=== PATIENT | female | born 1940 | race Caucasian/White ===

== ENCOUNTER 2016-04-30 13:07 | Emergency (ER) | payer OTHER ==
[~2016-04-30] VITALS: Ht 152.4 cm; Wt 64.3 kg
[~2016-04-30 13:07] MED LIST: ADVAIR HFA120 INHAL1 IH; ALBUTEROL17 GM IH; AMARYL2 MG PO; AMOXICILLIN500 MG PO; ANUSOL HC,ANUCO25 MG PR; AUGMENTIN875 MG PO; BLOOD SUGAR MED; BYSTOLIC5 MG PO; CIPRO500 MG PO; CIPROFLOXACIN H10 ML BOTH EYES; CLEOCIN150 MG PO; DUONEB 2.5-0.5 M3 ML AEROSOL; DUONEB 2.5-0.5 M3 ML IH; FLAGYL500 MG PO; JANUVIA100 MG PO; JENTADUETO 2.51 EACH PO; LEVOFLOXACIN500 MG PO; MILK OF MAGNESI10 ML PO; MONTELUKAST SOD10 MG PO; MOTRIN800 MG PO; PREDNISONE10 MG PO; PREDNISONE20 MG PO; PROAIR HFA8.5 GM IH; ZITHROMAX Z-PA250 MG PO; ZOFRAN ODT4 MG PO
[2016-04-30 13:40] LABS: POINT-OF-CARE METER ID UU13113778
[2016-04-30 13:43] LABS: ADD MIUA? NO; BILIRUBIN NEGATIVE; BLOOD NEGATIVE; COLOR LT YELLOW ((YELLOW)); GLUCOSE (STRIP) 500; KETONES NEGATIVE; LEUKOCYTES NEGATIVE; NITRITE NEGATIVE; PROTEIN (STRIP) NEGATIVE; SPECIFIC GRAVITY 1.017 (1.000-1.030); UCUL ADDED? NO
[2016-04-30 14:44] LABS: EOSINOPHIL (%) 0.9 % (0-5); HEMATOCRIT 39.1 % (36.0-46.0); IMMATURE GRANULOCYTE (%) 0.2 % (0.0-0.7); IMMATURE GRANULOCYTE COUNT 0.1 K/uL; LYMPHOCYTE COUNT 1.1 K/uL (1.0-2.8); MCH 29.2 PG (29.0-34.0); MCHC 35.3 G/DL (30.0-36.0); MCV 82.8 FL (83-99); MEAN PLAT.VOLUME 9.8 uM^3 (9.5-12.4); MONOCYTE COUNT 0.4 K/uL (0-0.8); NEUTROPHIL (%) 62.4 % (45-76); NEUTROPHIL COUNT 2.7 K/uL (1.8-6.4); PLATELET COUNT 182 K/uL (156-360); RBC DIS.WIDTH-SD 41.4 % (39-53); RED BLOOD COUNT 4.72 M/uL (3.80-5.20); WHITE BLOOD COUNT 4.3 K/uL (4.1-10.2)
[2016-04-30] MEDS ORDERED: CAPECITABINE500 MG PO (15:04)
[2016-04-30 15:18] LABS: CHLORIDE 100 mEq/L (99-109); POTASSIUM 4.5 mEq/L (3.7-5.4); SODIUM 138 mEq/L (136-147)
[2016-04-30 15:20] LABS: GLUCOSE 274 mg/dL (70-99)
[2016-04-30 15:21] LABS: ANION GAP 15 MEQ/L (2-14)
[2016-04-30 15:24] LABS: GFR ESTIMATE (CALCULATED) 58 mL/min/
[2016-04-30 15:25] LABS: UREA NITROGEN (BUN) 14 mg/dL (9-23)
[2016-04-30 15:38] LABS: CARBON DIOXIDE (BICARBONATE) 32.7 MEQ/L (20-31)
[2016-04-30] MEDS ORDERED: MIRALAX17 GM PO (16:28)
[2016-04-30 16:33] VITALS: BP 142/72
== END 2016-04-30 16:43 | disposition home or self-care (01) ==
LOC: EME 13:07
PROVIDERS: Physician Assistant
DX: E11.65 Type 2 diabetes mellitus with hyperglycemia (principal); J44.9 Chronic obstructive pulmonary disease, unspecified; I10 Essential (primary) hypertension; Z87.442 Personal history of urinary calculi; K21.9 Gastro-esophageal reflux disease without esophagitis; Z87.01 Personal history of pneumonia (recurrent)
CPT/HCPCS: 73130; 80048; 81003; 82803; 82948; 85025; 99281; 99284; J7120

== ENCOUNTER 2016-05-05 11:42 | Emergency (ER) | payer OTHER ==
[~2016-05-05] VITALS: Ht 165.1 cm; Wt 62.5 kg
[~2016-05-05 11:42] MED LIST changes: +CAPECITABINE500 MG PO; +MIRALAX17 GM PO
[2016-05-05 13:44] LABS: EOSINOPHIL (%) 0.6 % (0-5); HEMATOCRIT 37.7 % (36.0-46.0); IMMATURE GRANULOCYTE COUNT 0.3 K/uL; LYMPHOCYTE COUNT 0.4 K/uL (1.0-2.8); MCH 28.9 PG (29.0-34.0); MCV 85.1 FL (83-99); MEAN PLAT.VOLUME 9.5 uM^3 (9.5-12.4); MONOCYTE (%) 12.1 % (3-12); MONOCYTE COUNT 0.4 K/uL (0-0.8); NEUTROPHIL (%) 73.9 % (45-76); NEUTROPHIL COUNT 2.3 K/uL (1.8-6.4); PLATELET COUNT 136 K/uL (156-360); RBC DIS.WIDTH-CV 15.4 % (11.8-14.6); RED BLOOD COUNT 4.43 M/uL (3.80-5.20); WHITE BLOOD COUNT 3.1 K/uL (4.1-10.2)
[2016-05-05 13:49] LABS: ADD MIUA? NO; BILIRUBIN NEGATIVE; BLOOD NEGATIVE; COLOR YELLOW ((YELLOW)); GLUCOSE (STRIP) 500; KETONES TRACE; LEUKOCYTES NEGATIVE; NITRITE NEGATIVE; PH, URINE 6.5 (5-8); PROTEIN (STRIP) NEGATIVE; SPECIFIC GRAVITY 1.007 (1.000-1.030)
[2016-05-05 13:50] LABS: CHLORIDE 103 mEq/L (99-109); POTASSIUM 3.8 mEq/L (3.7-5.4); SODIUM 135 mEq/L (136-147)
[2016-05-05 13:53] LABS: GLUCOSE 261 mg/dL (70-99)
[2016-05-05 13:53] LABS: UCUL ADDED? NO
[2016-05-05 13:54] LABS: ANION GAP 8 MEQ/L (2-14)
[2016-05-05 13:55] LABS: TOTAL BILIRUBIN 0.4 mg/dL (0.0-1.0)
[2016-05-05 13:56] LABS: ALKALINE PHOSPHATASE 47 IU/L (3-129); GFR ESTIMATE (CALCULATED) > 59 mL/min/
[2016-05-05 13:57] LABS: UREA NITROGEN (BUN) 12 mg/dL (9-23)
[2016-05-05 14:00] LABS: LIPASE 21 U/L (1.0-51.0)
[2016-05-05] MEDS ORDERED: BENTYL20 MG PO (15:21)
[2016-05-05] MEDS ORDERED: FLAGYL500 MG PO ×2 (15:22→15:25)
[2016-05-05] MEDS ORDERED: CIPRO500 MG PO ×2 (15:22→15:25)
[2016-05-05 15:50] VITALS: BP 114/64
[2016-05-06] MEDS ORDERED: CIPRO500 MG PO (14:54)
[2016-05-06] MEDS ORDERED: METRONIDAZOLE500 MG PO (14:55)
[2016-05-06] MEDS ORDERED: ANTI-DIARRHEA2 MG PO (14:56)
[2016-05-06] MEDS ORDERED: ZOFRAN8 MG PO (14:58)
[2016-05-06] MEDS ORDERED: SYMBICORT60 INHALAT IH (14:59)
[2016-05-06] MEDS ORDERED: JARDIANCE25 MG PO (15:02)
== END 2016-05-05 16:03 | disposition home or self-care (01) ==
LOC: EME → EDBD 11:42 → EME 11:42
PROVIDERS: Emergency Medicine
DX: K57.32 Diverticulitis of large intestine without perforation or abscess without bleeding (principal); C20 Malignant neoplasm of rectum; I10 Essential (primary) hypertension; E11.9 Type 2 diabetes mellitus without complications; J44.9 Chronic obstructive pulmonary disease, unspecified
CPT/HCPCS: 74177; 80053; 81003; 83690; 85025; 99281; 99285; J7030

== ENCOUNTER 2016-05-06 13:20 | Inpatient (IN) | payer OTHER ==
[~2016-05-06] VITALS: Ht 152.4 cm; Wt 62.3 kg
[~2016-05-06 13:20] MED LIST changes: +BENTYL20 MG PO
[2016-05-06 13:41] LABS: ADD MIUA? NO; BILIRUBIN NEGATIVE; BLOOD NEGATIVE; COLOR YELLOW ((YELLOW)); GLUCOSE (STRIP) NEGATIVE; KETONES 15; LEUKOCYTES NEGATIVE; NITRITE NEGATIVE; PROTEIN (STRIP) NEGATIVE; SPECIFIC GRAVITY 1.013 (1.000-1.030); UCUL ADDED? NO; UROBILINOGEN 0.2 MG/DL (0.2-1.0)
[2016-05-06 14:04] LABS: HEMATOCRIT 39.1 % (36.0-46.0); MCH 28.9 PG (29.0-34.0); MCHC 34.8 G/DL (30.0-36.0); MCV 83.2 FL (83-99); MEAN PLAT.VOLUME 9.3 uM^3 (9.5-12.4); PLATELET COUNT 154 K/uL (156-360); RBC DIS.WIDTH-CV 15.8 % (11.8-14.6); RBC DIS.WIDTH-SD 43.9 % (39-53); WHITE BLOOD COUNT 3.1 K/uL (4.1-10.2)
[2016-05-06 14:15] LABS: CHLORIDE 102 mEq/L (99-109); POTASSIUM 3.9 mEq/L (3.7-5.4); SODIUM 135 mEq/L (136-147)
[2016-05-06 14:17] LABS: GLUCOSE 205 mg/dL (70-99)
[2016-05-06 14:18] LABS: ANION GAP 12 MEQ/L (2-14)
[2016-05-06 14:19] LABS: TOTAL BILIRUBIN 0.4 mg/dL (0.0-1.0)
[2016-05-06 14:20] LABS: ALKALINE PHOSPHATASE 53 IU/L (3-129)
[2016-05-06 14:21] LABS: GFR ESTIMATE (CALCULATED) > 59 mL/min/
[2016-05-06 14:22] LABS: UREA NITROGEN (BUN) 11 mg/dL (9-23)
[2016-05-06] MEDS ORDERED: CIPRO500 MG PO (14:54)
[2016-05-06] MEDS ORDERED: METRONIDAZOLE500 MG PO (14:55)
[2016-05-06] MEDS ORDERED: ANTI-DIARRHEA2 MG PO (14:56)
[2016-05-06] MEDS ORDERED: ZOFRAN8 MG PO (14:58)
[2016-05-06] MEDS ORDERED: SYMBICORT60 INHALAT IH (14:59)
[2016-05-06] MEDS ORDERED: JARDIANCE25 MG PO (15:02)
[2016-05-06 23:40] VITALS: BP 125/61
[2016-05-07 03:24] LABS: POINT-OF-CARE METER ID UU13113807
[2016-05-07 04:23] VITALS: BP 121/59
[2016-05-07 07:05] LABS: EOSINOPHIL (%) 0 % (0-5); HEMATOCRIT 33.9 % (36.0-46.0); LYMPHOCYTE COUNT 0.4 K/uL (1.0-2.8); MCH 28.2 PG (29.0-34.0); MCHC 33.6 G/DL (30.0-36.0); MCV 83.9 FL (83-99); MEAN PLAT.VOLUME 9.2 uM^3 (9.5-12.4); MONOCYTE COUNT 0.3 K/uL (0-0.8); NEUTROPHIL (%) 62.6 % (45-76); NEUTROPHIL COUNT 1.3 K/uL (1.8-6.4); PLATELET COUNT 111 K/uL (156-360); RBC DIS.WIDTH-CV 15.5 % (11.8-14.6); RED BLOOD COUNT 4.04 M/uL (3.80-5.20); WHITE BLOOD COUNT 2.1 K/uL (4.1-10.2)
[2016-05-07 08:00] VITALS: BP 106/52
[2016-05-07 09:04] LABS: ANION GAP 9 MEQ/L (2-14); CHLORIDE 104 MEQ/L (99-109); GFR ESTIMATE (CALCULATED) > 59 mL/min/; GLUCOSE 157 mg/dL (70-99); POTASSIUM 3.2 MEQ/L (3.7-5.4); SAMPLE HEMOLYSIS CHECK 0; SAMPLE ICTERIC CHECK 0; SAMPLE LIPEMIA CHECK 0; SODIUM 138 MEQ/L (136-147); UREA NITROGEN (BUN) 8 mg/dL (9-23)
[2016-05-07 09:19] LABS: POINT-OF-CARE METER ID UU13113807
[2016-05-07 10:39] LABS: POINT-OF-CARE METER ID UU13113807
[2016-05-07 12:00] VITALS: BP 113/54
[2016-05-07 14:33] LABS: POINT-OF-CARE METER ID UU13113807
[2016-05-07 16:00] VITALS: BP 126/71
[2016-05-07 18:19] LABS: POINT-OF-CARE METER ID UU14149396
[2016-05-07 20:00] VITALS: BP 118/92
[2016-05-07 22:38] LABS: POINT-OF-CARE METER ID UU14149396
[2016-05-08] VITALS: BP 104/51
[2016-05-08 04:00] VITALS: BP 138/60
[2016-05-08 05:25] LABS: POINT-OF-CARE METER ID UU14149396
[2016-05-08 08:31] LABS: POINT-OF-CARE METER ID UU13113807
[2016-05-08 08:51] VITALS: BP 131/63
[2016-05-08 12:07] LABS: POINT-OF-CARE METER ID UU14149398
[2016-05-08 16:26] LABS: POINT-OF-CARE METER ID UU14149398
[2016-05-08 16:50] VITALS: BP 130/59
[2016-05-08 19:16] LABS: POINT-OF-CARE METER ID UU14149398
[2016-05-08 22:21] LABS: POINT-OF-CARE METER ID UU14149398
[2016-05-09 00:10] VITALS: BP 117/59
[2016-05-09 03:55] VITALS: BP 169/71
[2016-05-09 04:52] LABS: CHLORIDE 111 mEq/L (99-109); POTASSIUM 3.2 mEq/L (3.7-5.4); SODIUM 141 mEq/L (136-147)
[2016-05-09 04:54] LABS: GLUCOSE 152 mg/dL (70-99)
[2016-05-09 04:55] LABS: ANION GAP 7 MEQ/L (2-14)
[2016-05-09 04:58] LABS: GFR ESTIMATE (CALCULATED) > 59 mL/min/
[2016-05-09 04:59] LABS: UREA NITROGEN (BUN) 3 mg/dL (9-23)
[2016-05-09 05:01] LABS: HEMATOCRIT 33.9 % (36.0-46.0); MCH 28.7 PG (29.0-34.0); MCHC 33.9 G/DL (30.0-36.0); MCV 84.5 FL (83-99); MEAN PLAT.VOLUME 9.1 uM^3 (9.5-12.4); PLATELET COUNT 126 K/uL (156-360); RBC DIS.WIDTH-CV 16.1 % (11.8-14.6); RBC DIS.WIDTH-SD 46.5 % (39-53); RED BLOOD COUNT 4.01 M/uL (3.80-5.20)
[2016-05-09 05:05] LABS: WHITE BLOOD COUNT 1.7 K/uL (4.1-10.2)
[2016-05-09 06:04] LABS: EOSINOPHIL (%) 2.3 % (0-5); IMMATURE GRANULOCYTE (%) 0.6 % (0.0-0.7); IMMATURE GRANULOCYTE COUNT 0.1 K/uL; LYMPHOCYTE COUNT 0.4 K/uL (1.0-2.8); MONOCYTE (%) 16.1 % (3-12); MONOCYTE COUNT 0.3 K/uL (0-0.8); NEUTROPHIL (%) 55.7 % (45-76)
[2016-05-09 06:05] LABS: HEMATOLOGY COMMENT 1 SMEAR COMPATIBLE; USER ID DCS
[2016-05-09 08:19] LABS: POINT-OF-CARE METER ID UU14149398
[2016-05-09 08:46] VITALS: BP 129/61
[2016-05-09 12:31] LABS: POINT-OF-CARE METER ID UU14149398
[2016-05-09 12:45] VITALS: BP 138/65
[2016-05-09 16:27] LABS: POINT-OF-CARE METER ID UU14149398
[2016-05-09 16:55] VITALS: BP 124/60
[2016-05-09 20:10] VITALS: BP 142/63
[2016-05-09 21:23] LABS: ADD MIUA? NO; BILIRUBIN NEGATIVE; BLOOD NEGATIVE; COLOR YELLOW ((YELLOW)); GLUCOSE (STRIP) 100; KETONES NEGATIVE; LEUKOCYTES NEGATIVE; NITRITE NEGATIVE; PH, URINE 6.5 (5-8); PROTEIN (STRIP) NEGATIVE; UCUL ADDED? NO
[2016-05-09 21:48] LABS: POINT-OF-CARE METER ID UU14149398
[2016-05-10 00:02] VITALS: BP 130/62
[2016-05-10 03:49] VITALS: BP 134/68
[2016-05-10 06:09] LABS: EOSINOPHIL (%) 1.1 % (0-5); HEMATOCRIT 37.9 % (36.0-46.0); IMMATURE GRANULOCYTE (%) 1.5 % (0.0-0.7); LYMPHOCYTE COUNT 0.5 K/uL (1.0-2.8); MCH 28.9 PG (29.0-34.0); MCHC 33.5 G/DL (30.0-36.0); MCV 86.1 FL (83-99); MEAN PLAT.VOLUME 9.9 uM^3 (9.5-12.4); MONOCYTE (%) 12.1 % (3-12); MONOCYTE COUNT 0.3 K/uL (0-0.8); NEUTROPHIL COUNT 1.7 K/uL (1.8-6.4); PLATELET COUNT 128 K/uL (156-360); RBC DIS.WIDTH-CV 16.5 % (11.8-14.6); RBC DIS.WIDTH-SD 50.1 % (39-53)
[2016-05-10 06:12] LABS: WHITE BLOOD COUNT 2.7 K/uL (4.1-10.2)
[2016-05-10 06:33] LABS: ANION GAP 9 MEQ/L (2-14); CHLORIDE 108 MEQ/L (99-109); GFR ESTIMATE (CALCULATED) > 59 mL/min/; GLUCOSE 171 mg/dL (70-99); POTASSIUM 3.6 MEQ/L (3.7-5.4); SAMPLE HEMOLYSIS CHECK 0; SAMPLE ICTERIC CHECK 0; SAMPLE LIPEMIA CHECK 0; SODIUM 139 MEQ/L (136-147); UREA NITROGEN (BUN) 3 mg/dL (9-23)
[2016-05-10 08:05] VITALS: BP 124/59
[2016-05-10 09:01] LABS: POINT-OF-CARE METER ID UU14149398
[2016-05-10 12:13] LABS: POINT-OF-CARE METER ID UU14149398
[2016-05-10 16:28] VITALS: BP 127/71
[2016-05-10 17:56] LABS: POINT-OF-CARE METER ID UU14149398
[2016-05-10 21:43] LABS: POINT-OF-CARE METER ID UU14149398
[2016-05-10 23:35] VITALS: BP 126/62
[2016-05-11 08:21] VITALS: BP 145/68
[2016-05-11 09:34] LABS: POINT-OF-CARE METER ID UU14149398; POINT-OF-CARE USER ID 606021404
[2016-05-11 12:27] LABS: POINT-OF-CARE METER ID UU13113807; POINT-OF-CARE USER ID 606021404
[2016-05-11 15:33] VITALS: BP 151/68
[2016-05-11 17:29] LABS: POINT-OF-CARE METER ID UU13113807
[2016-05-11 20:05] VITALS: BP 119/65
[2016-05-11 21:11] LABS: POINT-OF-CARE METER ID UU14149398
[2016-05-11 23:58] VITALS: BP 127/66
[2016-05-12 03:37] VITALS: BP 142/63
[2016-05-12 05:55] LABS: HEMATOCRIT 34.2 % (36.0-46.0); MCH 28.7 PG (29.0-34.0); MCHC 33.3 G/DL (30.0-36.0); MCV 86.1 FL (83-99); MEAN PLAT.VOLUME 9.7 uM^3 (9.5-12.4); PLATELET COUNT 128 K/uL (156-360); RBC DIS.WIDTH-CV 16.9 % (11.8-14.6); RBC DIS.WIDTH-SD 51.3 % (39-53); RED BLOOD COUNT 3.97 M/uL (3.80-5.20); WHITE BLOOD COUNT 2.4 K/uL (4.1-10.2)
[2016-05-12 06:09] LABS: EOSINOPHIL (%) 4.2 % (0-5); EOSINOPHIL COUNT 0.1 K/uL (0-0.3); IMMATURE GRANULOCYTE (%) 2.9 % (0.0-0.7); IMMATURE GRANULOCYTE COUNT 0.1 K/uL; LYMPHOCYTE COUNT 0.7 K/uL (1.0-2.8); MONOCYTE (%) 18.4 % (3-12); MONOCYTE COUNT 0.4 K/uL (0-0.8); NEUTROPHIL (%) 44.8 % (45-76); NEUTROPHIL COUNT 1.1 K/uL (1.8-6.4)
[2016-05-12 06:25] LABS: ANION GAP 6 MEQ/L (2-14); CHLORIDE 109 MEQ/L (99-109); GFR ESTIMATE (CALCULATED) > 59 mL/min/; GLUCOSE 199 mg/dL (70-99); POTASSIUM 4.2 MEQ/L (3.7-5.4); SAMPLE HEMOLYSIS CHECK 0; SAMPLE ICTERIC CHECK 0; SAMPLE LIPEMIA CHECK 0; SODIUM 142 MEQ/L (136-147); UREA NITROGEN (BUN) 5 mg/dL (9-23)
[2016-05-12 07:55] VITALS: BP 184/77
[2016-05-12 08:19] LABS: POINT-OF-CARE METER ID UU14149398; POINT-OF-CARE USER ID 606021404
[2016-05-12 11:50] VITALS: BP 128/55
[2016-05-12 12:00] LABS: POINT-OF-CARE METER ID UU14149398; POINT-OF-CARE USER ID 606021404
[2016-05-12 15:31] VITALS: BP 107/54
[2016-05-12 17:36] LABS: POINT-OF-CARE METER ID UU14149398; POINT-OF-CARE USER ID 606021404
[2016-05-12 20:10] VITALS: BP 134/62
[2016-05-12] MEDS ORDERED: CIPROFLOXACIN500 M1 PO (20:16)
[2016-05-12] MEDS ORDERED: DICYCLOMINE HCL10 MG PO (20:16)
[2016-05-12] MEDS ORDERED: K-DUR20 MEQ PO (20:17)
[2016-05-12] MEDS ORDERED: PRAVASTATIN SOD40 MG PO (20:17)
[2016-05-12] MEDS ORDERED: PANTOPRAZOLE SO40 MG PO (20:18)
[2016-05-12] MEDS ORDERED: MUCINEX600 MG PO (20:18)
[2016-05-12 22:08] LABS: POINT-OF-CARE METER ID UU14149398
[2016-05-13] VITALS: BP 107/53
[2016-05-13 07:46] VITALS: BP 151/68
[2016-05-13 07:51] LABS: POINT-OF-CARE METER ID UU14149396
[2016-05-13 12:12] VITALS: BP 117/57
[2016-05-13 12:49] LABS: POINT-OF-CARE METER ID UU13113807
[2016-05-13 14:41] LABS: POINT-OF-CARE METER ID UU13113807
== END 2016-05-13 16:00 | disposition home or self-care (01) | DRG 392 ==
LOC: EME 13:20 → 4SOUTH 16:22 → EDOF 16:22 → 4SOUTH 23:30
PROVIDERS: Family Medicine; Family Medicine Sports Medicine
DX: K57.92 Diverticulitis of intestine, part unspecified, without perforation or abscess without bleeding (principal); C20 Malignant neoplasm of rectum; I27.2 Other secondary pulmonary hypertension; Z92.21 Personal history of antineoplastic chemotherapy; R07.89 Other chest pain; F32.9 Major depressive disorder, single episode, unspecified; E11.9 Type 2 diabetes mellitus without complications; J44.9 Chronic obstructive pulmonary disease, unspecified; I10 Essential (primary) hypertension; E78.5 Hyperlipidemia, unspecified; K21.9 Gastro-esophageal reflux disease without esophagitis; E87.6 Hypokalemia; I50.9 Heart failure, unspecified; F41.9 Anxiety disorder, unspecified; R11.0 Nausea; Z80.0 Family history of malignant neoplasm of digestive organs; Z91.040 Latex allergy status; Z88.6 Allergy status to analgesic agent; Z88.1 Allergy status to other antibiotic agents; Z92.3 Personal history of irradiation
CPT/HCPCS: 71020; 74020; 74177; 77290; 77336; 77412; 77417; 80048; 80053; 81003; 82948; 83690; 85025; 85027; 93005; 93306; 94640; 94640 76; 99202; 99281; 99285; J0744; J1650; J1815; J2405; J3010; J3480; J7030; J8521; S0028; S0030

== ENCOUNTER 2016-07-29 08:08 | Inpatient (IN) | payer OTHER ==
[~2016-07-29] VITALS: Ht 152.4 cm; Wt 75.8 kg
[2016-07-29] VITALS (7 sets, daily range): BP systolic 114–143; BP diastolic 55–94
[~2016-07-29 08:08] MED LIST changes: +ANTI-DIARRHEA2 MG PO; +CIPROFLOXACIN500 M1 PO; +DICYCLOMINE HCL10 MG PO; +GLUCOTROL5 MG PO; +JARDIANCE25 MG PO; +K-DUR20 MEQ PO; +METRONIDAZOLE500 MG PO; +MUCINEX600 MG PO; +PANTOPRAZOLE SO40 MG PO; +PRAVACHOL40 MG PO; +PRAVASTATIN SOD40 MG PO; +PROTONIX40 MG PO; +SYMBICORT60 INHALAT IH; +TOPROL XL25 MG PO; +ZOFRAN8 MG PO
[2016-07-29 09:08] LABS: HEMATOCRIT 40.2 % (36.0-46.0); MCH 29.6 PG (29.0-34.0); MCHC 33.3 G/DL (30.0-36.0); MCV 88.7 FL (83-99); MEAN PLAT.VOLUME 9.8 uM^3 (9.5-12.4); PLATELET COUNT 194 K/uL (156-360); RBC DIS.WIDTH-CV 12.7 % (11.8-14.6); RBC DIS.WIDTH-SD 41.5 % (39-53); RED BLOOD COUNT 4.53 M/uL (3.80-5.20); WHITE BLOOD COUNT 5.9 K/uL (4.1-10.2)
[2016-07-29 09:16] LABS: CHLORIDE 105 mEq/L (99-109); POTASSIUM 4.3 mEq/L (3.7-5.4); SODIUM 139 mEq/L (136-147)
[2016-07-29 09:18] LABS: GLUCOSE 219 mg/dL (70-99)
[2016-07-29 09:19] LABS: ANION GAP 8 MEQ/L (2-14)
[2016-07-29 09:22] LABS: GFR ESTIMATE (CALCULATED) > 59 mL/min/
[2016-07-29 09:23] LABS: UREA NITROGEN (BUN) 11 mg/dL (9-23)
[2016-07-29 16:47] LABS: POINT-OF-CARE METER ID UU13113675
[2016-07-29 17:48] LABS: ANION GAP 9 MEQ/L (2-14); CHLORIDE 104 MEQ/L (99-109); MAGNESIUM 1.3 mg/dl (1.3-2.7); POTASSIUM 3.8 MEQ/L (3.7-5.4); SAMPLE HEMOLYSIS CHECK 0; SAMPLE ICTERIC CHECK 0; SAMPLE LIPEMIA CHECK 0; SODIUM 136 MEQ/L (136-147)
[2016-07-29 17:54] LABS: GFR ESTIMATE (CALCULATED) > 59 mL/min/; UREA NITROGEN (BUN) 9 mg/dL (9-23)
[2016-07-29 17:55] LABS: TROP-I INTERPRETATION NEGATIVE; TROPONIN-I < 0.01 ng/mL (0.0-0.30)
[2016-07-29 17:59] LABS: GLUCOSE 373 mg/dL (70-99)
[2016-07-29 18:03] LABS: HEMATOCRIT 28.2 % (36.0-46.0); MCH 29.9 PG (29.0-34.0); MCHC 33.7 G/DL (30.0-36.0); MCV 88.7 FL (83-99); MEAN PLAT.VOLUME 9.9 uM^3 (9.5-12.4); PLATELET COUNT 183 K/uL (156-360); RBC DIS.WIDTH-CV 12.8 % (11.8-14.6); RBC DIS.WIDTH-SD 41.7 % (39-53)
[2016-07-29 18:08] LABS: RED BLOOD COUNT 3.18 M/uL (3.80-5.20); WHITE BLOOD COUNT 13.2 K/uL (4.1-10.2)
[2016-07-29 21:10] LABS: METH RESISTANT S AUREUS PCR NEGATIVE (NEGATIVE)
[2016-07-29 21:11] LABS: PROBE CHECK PASS; SPECIMEN PROCESSING CONTROL PASS
[2016-07-30] VITALS (23 sets, daily range): BP systolic 86–126; BP diastolic 31–53
[2016-07-30 05:49] LABS: HEMATOCRIT 27.2 % (36.0-46.0); MCH 29.9 PG (29.0-34.0); MCHC 33.5 G/DL (30.0-36.0); MCV 89.5 FL (83-99); MEAN PLAT.VOLUME 10.2 uM^3 (9.5-12.4); PLATELET COUNT 205 K/uL (156-360); RBC DIS.WIDTH-SD 42.2 % (39-53); RED BLOOD COUNT 3.04 M/uL (3.80-5.20); WHITE BLOOD COUNT 16.7 K/uL (4.1-10.2)
[2016-07-30 06:11] LABS: ANION GAP 10 MEQ/L (2-14); CHLORIDE 102 MEQ/L (99-109); GFR ESTIMATE (CALCULATED) > 59 mL/min/; GLUCOSE 328 mg/dL (70-99); MAGNESIUM 1.3 mg/dl (1.3-2.7); POTASSIUM 4.5 MEQ/L (3.7-5.4); SAMPLE HEMOLYSIS CHECK 0; SAMPLE ICTERIC CHECK 0; SAMPLE LIPEMIA CHECK 0; SODIUM 137 MEQ/L (136-147); UREA NITROGEN (BUN) 10 mg/dL (9-23)
[2016-07-30 06:28] LABS: TROP-I INTERPRETATION NEGATIVE; TROPONIN-I < 0.01 ng/mL (0.0-0.30)
[2016-07-30 08:53] LABS: ANION GAP 10 MEQ/L (2-14); CHLORIDE 109 MEQ/L (99-109); GFR ESTIMATE (CALCULATED) > 59 mL/min/; GLUCOSE 305 mg/dL (70-99); POTASSIUM 4.5 MEQ/L (3.7-5.4); SAMPLE HEMOLYSIS CHECK 0; SAMPLE ICTERIC CHECK 0; SAMPLE LIPEMIA CHECK 0; SODIUM 144 MEQ/L (136-147); UREA NITROGEN (BUN) 10 mg/dL (9-23)
[2016-07-30 09:34] LABS: Estimated Average Glucose 189 mg/dL (70-123)
[2016-07-30 09:45] LABS: POINT-OF-CARE METER ID UU13113731
[2016-07-30 09:48] LABS: HEMOGLOBIN A1c (GLYCOHEMOGLOB) 8.2 % HGB (Below 5.7)
[2016-07-30 10:37] LABS: POINT-OF-CARE METER ID UU13113731
[2016-07-30 11:41] LABS: POINT-OF-CARE METER ID UU13113731
[2016-07-30 12:40] LABS: POINT-OF-CARE METER ID UU13113731
[2016-07-30 13:39] LABS: ANION GAP 8 MEQ/L (2-14); CHLORIDE 104 MEQ/L (99-109); GFR ESTIMATE (CALCULATED) > 59 mL/min/; GLUCOSE 163 mg/dL (70-99); SAMPLE HEMOLYSIS CHECK 0; SAMPLE ICTERIC CHECK 0; SAMPLE LIPEMIA CHECK 0; SODIUM 137 MEQ/L (136-147); UREA NITROGEN (BUN) 10 mg/dL (9-23)
[2016-07-30 13:41] LABS: POINT-OF-CARE METER ID UU13113731
[2016-07-30 14:50] LABS: POINT-OF-CARE METER ID UU13113731
[2016-07-30 15:40] LABS: POINT-OF-CARE METER ID UU13113731
[2016-07-30 16:12] LABS: HEMATOCRIT 30.4 % (36.0-46.0); MCH 29.7 PG (29.0-34.0); MCHC 34.2 G/DL (30.0-36.0); MCV 86.9 FL (83-99); PLATELET COUNT 161 K/uL (156-360); RBC DIS.WIDTH-CV 14.1 % (11.8-14.6); RBC DIS.WIDTH-SD 44.6 % (39-53); WHITE BLOOD COUNT 14.3 K/uL (4.1-10.2)
[2016-07-30 16:25] LABS: ANION GAP 5 MEQ/L (2-14); CHLORIDE 105 MEQ/L (99-109); POTASSIUM 4.2 MEQ/L (3.7-5.4); SAMPLE HEMOLYSIS CHECK 0; SAMPLE ICTERIC CHECK 0; SAMPLE LIPEMIA CHECK 0; SODIUM 137 MEQ/L (136-147)
[2016-07-30 16:31] LABS: GFR ESTIMATE (CALCULATED) > 59 mL/min/; GLUCOSE 123 mg/dL (70-99); UREA NITROGEN (BUN) 10 mg/dL (9-23)
[2016-07-30 16:40] LABS: POINT-OF-CARE METER ID UU13113731
[2016-07-30 18:16] LABS: POINT-OF-CARE METER ID UU13113803
[2016-07-30 20:53] LABS: ANION GAP 6 MEQ/L (2-14); CHLORIDE 103 MEQ/L (99-109); POTASSIUM 4.5 MEQ/L (3.7-5.4); SAMPLE HEMOLYSIS CHECK 0; SAMPLE ICTERIC CHECK 0; SAMPLE LIPEMIA CHECK 0; SODIUM 136 MEQ/L (136-147)
[2016-07-30 20:58] LABS: GFR ESTIMATE (CALCULATED) > 59 mL/min/; UREA NITROGEN (BUN) 9 mg/dL (9-23)
[2016-07-30 21:00] LABS: GLUCOSE 197 mg/dL (70-99)
[2016-07-30 21:35] LABS: POINT-OF-CARE METER ID UU13113731
[2016-07-31] VITALS (21 sets, daily range): BP systolic 100–132; BP diastolic 39–52
[2016-07-31 01:31] LABS: CHLORIDE 105 mEq/L (99-109); POTASSIUM 4.3 mEq/L (3.7-5.4); SODIUM 137 mEq/L (136-147)
[2016-07-31 01:33] LABS: GLUCOSE 182 mg/dL (70-99)
[2016-07-31 01:34] LABS: ANION GAP 6 MEQ/L (2-14)
[2016-07-31 01:37] LABS: GFR ESTIMATE (CALCULATED) > 59 mL/min/
[2016-07-31 01:38] LABS: UREA NITROGEN (BUN) 8 mg/dL (9-23)
[2016-07-31 02:23] LABS: POINT-OF-CARE METER ID UU14174217
[2016-07-31 05:48] LABS: HEMATOCRIT 28.1 % (36.0-46.0); MCH 29.5 PG (29.0-34.0); MCHC 33.5 G/DL (30.0-36.0); MCV 88.1 FL (83-99); MEAN PLAT.VOLUME 10.2 uM^3 (9.5-12.4); PLATELET COUNT 150 K/uL (156-360); RBC DIS.WIDTH-CV 14.9 % (11.8-14.6); RBC DIS.WIDTH-SD 48.4 % (39-53); RED BLOOD COUNT 3.19 M/uL (3.80-5.20)
[2016-07-31 06:04] LABS: ANION GAP 6 MEQ/L (2-14); CHLORIDE 104 MEQ/L (99-109); POTASSIUM 4.2 MEQ/L (3.7-5.4); SAMPLE HEMOLYSIS CHECK 0; SAMPLE ICTERIC CHECK 0; SAMPLE LIPEMIA CHECK 0; SODIUM 137 MEQ/L (136-147)
[2016-07-31 06:10] LABS: GFR ESTIMATE (CALCULATED) > 59 mL/min/; GLUCOSE 224 mg/dL (70-99); UREA NITROGEN (BUN) 8 mg/dL (9-23)
[2016-07-31 10:58] LABS: POINT-OF-CARE METER ID UU14174217
[2016-07-31 13:58] LABS: POINT-OF-CARE METER ID UU14174217
[2016-07-31 17:58] LABS: POINT-OF-CARE METER ID UU14174217
[2016-08-01] VITALS (22 sets, daily range): BP systolic 85–124; BP diastolic 40–51
[2016-08-01 00:30] LABS: POINT-OF-CARE METER ID UU14162636
[2016-08-01 05:44] LABS: POINT-OF-CARE METER ID UU14174217
[2016-08-01 06:13] LABS: ANION GAP 5 MEQ/L (2-14); CHLORIDE 102 MEQ/L (99-109); GFR ESTIMATE (CALCULATED) > 59 mL/min/; GLUCOSE 208 mg/dL (70-99); POTASSIUM 3.7 MEQ/L (3.7-5.4); SAMPLE HEMOLYSIS CHECK 0; SAMPLE ICTERIC CHECK 0; SAMPLE LIPEMIA CHECK 0; SODIUM 135 MEQ/L (136-147); UREA NITROGEN (BUN) 4 mg/dL (9-23)
[2016-08-01 06:27] LABS: EOSINOPHIL (%) 1.5 % (0-5); EOSINOPHIL COUNT 0.1 K/uL (0-0.3); HEMATOCRIT 24.3 % (36.0-46.0); IMMATURE GRANULOCYTE (%) 0.6 % (0.0-0.7); IMMATURE GRANULOCYTE COUNT 0.1 K/uL; INSTRUMENT ABS NEUTROPHIL CT 5.8 K/uL; LYMPHOCYTE COUNT 1.4 K/uL (1.0-2.8); MCH 29.4 PG (29.0-34.0); MCHC 32.9 G/DL (30.0-36.0); MCV 89.3 FL (83-99); MEAN PLAT.VOLUME 10.5 uM^3 (9.5-12.4); MONOCYTE (%) 8.4 % (3-12); MONOCYTE COUNT 0.7 K/uL (0-0.8); NEUTROPHIL (%) 72.1 % (45-76); NEUTROPHIL COUNT 5.8 K/uL (1.8-6.4); PLATELET COUNT 136 K/uL (156-360); RBC DIS.WIDTH-CV 14.3 % (11.8-14.6); RBC DIS.WIDTH-SD 46.3 % (39-53); RED BLOOD COUNT 2.72 M/uL (3.80-5.20)
[2016-08-01 09:41] LABS: POINT-OF-CARE METER ID UU14174217
[2016-08-01 14:47] LABS: POINT-OF-CARE METER ID UU13113731
[2016-08-01 18:00] LABS: POINT-OF-CARE METER ID UU13113731
[2016-08-01 21:42] LABS: POINT-OF-CARE METER ID UU13113731; POINT-OF-CARE USER ID PHATLC
[2016-08-02] VITALS (16 sets, daily range): BP systolic 92–148; BP diastolic 39–67
[2016-08-02 02:57] LABS: POINT-OF-CARE METER ID UU13113731; POINT-OF-CARE USER ID PHATLC
[2016-08-02 05:50] LABS: ANION GAP 5 MEQ/L (2-14); CHLORIDE 103 MEQ/L (99-109); GFR ESTIMATE (CALCULATED) > 59 mL/min/; GLUCOSE 183 mg/dL (70-99); POTASSIUM 3.7 MEQ/L (3.7-5.4); SAMPLE HEMOLYSIS CHECK 0; SAMPLE ICTERIC CHECK 0; SAMPLE LIPEMIA CHECK 0; SODIUM 138 MEQ/L (136-147); UREA NITROGEN (BUN) 3 mg/dL (9-23)
[2016-08-02 05:59] LABS: POINT-OF-CARE METER ID UU14174217; POINT-OF-CARE USER ID PHATLC
[2016-08-02 06:32] LABS: HEMATOCRIT 24.5 % (36.0-46.0); MCH 29.3 PG (29.0-34.0); MCHC 32.7 G/DL (30.0-36.0); MCV 89.7 FL (83-99); MEAN PLAT.VOLUME 10.4 uM^3 (9.5-12.4); PLATELET COUNT 138 K/uL (156-360); RBC DIS.WIDTH-CV 13.9 % (11.8-14.6); RBC DIS.WIDTH-SD 45.5 % (39-53); RED BLOOD COUNT 2.73 M/uL (3.80-5.20)
[2016-08-02 07:00] LABS: WHITE BLOOD COUNT 5.4 K/uL (4.1-10.2)
[2016-08-02 10:24] LABS: POINT-OF-CARE METER ID UU14162636
[2016-08-02 15:15] LABS: POINT-OF-CARE METER ID UU14162636
[2016-08-02 17:48] LABS: POINT-OF-CARE METER ID UU14162636
[2016-08-02 22:45] LABS: POINT-OF-CARE METER ID UU13113731
[2016-08-03] VITALS (7 sets, daily range): BP systolic 125–158; BP diastolic 53–64
[2016-08-03 02:43] LABS: POINT-OF-CARE METER ID UU13113803
[2016-08-03 05:29] LABS: POINT-OF-CARE METER ID UU13113803
[2016-08-03 05:43] LABS: HEMATOCRIT 26.1 % (36.0-46.0); MCH 28.8 PG (29.0-34.0); MCHC 32.2 G/DL (30.0-36.0); MCV 89.4 FL (83-99); MEAN PLAT.VOLUME 10.1 uM^3 (9.5-12.4); PLATELET COUNT 170 K/uL (156-360); RBC DIS.WIDTH-CV 13.8 % (11.8-14.6); RBC DIS.WIDTH-SD 44.3 % (39-53); RED BLOOD COUNT 2.92 M/uL (3.80-5.20); WHITE BLOOD COUNT 5.1 K/uL (4.1-10.2)
[2016-08-03 07:06] LABS: Estimated Average Glucose 160 mg/dL (70-123); HEMOGLOBIN A1c (GLYCOHEMOGLOB) 7.2 % HGB (Below 5.7)
[2016-08-03 07:09] LABS: ANION GAP 6 MEQ/L (2-14); CHLORIDE 104 MEQ/L (99-109); GFR ESTIMATE (CALCULATED) > 59 mL/min/; GLUCOSE 171 mg/dL (70-99); POTASSIUM 4.1 MEQ/L (3.7-5.4); SAMPLE HEMOLYSIS CHECK 0; SAMPLE ICTERIC CHECK 0; SAMPLE LIPEMIA CHECK 0; SODIUM 141 MEQ/L (136-147); UREA NITROGEN (BUN) 3 mg/dL (9-23)
[2016-08-03 10:08] LABS: POINT-OF-CARE METER ID UU13113803
[2016-08-04 00:54] LABS: POINT-OF-CARE METER ID UU14162508
[2016-08-04 04:00] VITALS: BP 119/56
[2016-08-04 06:25] LABS: POINT-OF-CARE METER ID UU14162508
[2016-08-04 07:15] LABS: EOSINOPHIL (%) 1.4 % (0-5); EOSINOPHIL COUNT 0.1 K/uL (0-0.3); HEMATOCRIT 25.8 % (36.0-46.0); IMMATURE GRANULOCYTE (%) 1.4 % (0.0-0.7); IMMATURE GRANULOCYTE COUNT 0.1 K/uL; INSTRUMENT ABS NEUTROPHIL CT 7.5 K/uL; LYMPHOCYTE COUNT 0.7 K/uL (1.0-2.8); MCH 29.2 PG (29.0-34.0); MCHC 33.3 G/DL (30.0-36.0); MCV 87.5 FL (83-99); MEAN PLAT.VOLUME 9.5 uM^3 (9.5-12.4); MONOCYTE (%) 8.1 % (3-12); MONOCYTE COUNT 0.7 K/uL (0-0.8); NEUTROPHIL (%) 81.4 % (45-76); NEUTROPHIL COUNT 7.5 K/uL (1.8-6.4); NRBC (%) 0.2 /100 WBC (0-0); PLATELET COUNT 204 K/uL (156-360); RBC DIS.WIDTH-CV 13.8 % (11.8-14.6); RBC DIS.WIDTH-SD 43.4 % (39-53); RED BLOOD COUNT 2.95 M/uL (3.80-5.20)
[2016-08-04 07:17] LABS: WHITE BLOOD COUNT 9.2 K/uL (4.1-10.2)
[2016-08-04 07:34] LABS: MAGNESIUM 1.3 mg/dl (1.3-2.7)
[2016-08-04 07:39] LABS: ANION GAP 5 MEQ/L (2-14); CHLORIDE 97 MEQ/L (99-109); GFR ESTIMATE (CALCULATED) > 59 mL/min/; GLUCOSE 150 mg/dL (70-99); SAMPLE HEMOLYSIS CHECK 0; SAMPLE ICTERIC CHECK 0; SAMPLE LIPEMIA CHECK 0; SODIUM 134 MEQ/L (136-147); UREA NITROGEN (BUN) 4 mg/dL (9-23)
[2016-08-04 07:40] LABS: POTASSIUM 3.2 MEQ/L (3.7-5.4)
[2016-08-04 08:00] VITALS: BP 108/54
[2016-08-04 10:42] LABS: POINT-OF-CARE METER ID UU14162508
[2016-08-04 12:00] VITALS: BP 132/59
[2016-08-04 14:32] LABS: POINT-OF-CARE METER ID UU14162508
[2016-08-04 16:00] VITALS: BP 156/67
[2016-08-04 20:17] VITALS: BP 142/70
[2016-08-04 21:25] LABS: POINT-OF-CARE METER ID UU14162508
[2016-08-04 23:30] VITALS: BP 140/65
[2016-08-05 04:04] VITALS: BP 136/70
[2016-08-05 06:17] LABS: POINT-OF-CARE METER ID UU14162508
[2016-08-05 07:12] LABS: HEMATOCRIT 28.1 % (36.0-46.0); MCH 29.4 PG (29.0-34.0); MCHC 33.1 G/DL (30.0-36.0); MCV 88.9 FL (83-99); MEAN PLAT.VOLUME 9.6 uM^3 (9.5-12.4); PLATELET COUNT 261 K/uL (156-360); RBC DIS.WIDTH-CV 13.9 % (11.8-14.6); RBC DIS.WIDTH-SD 44.7 % (39-53); RED BLOOD COUNT 3.16 M/uL (3.80-5.20)
[2016-08-05 07:30] VITALS: BP 143/72
[2016-08-05 07:45] LABS: ANION GAP 10 MEQ/L (2-14); CHLORIDE 100 MEQ/L (99-109); GFR ESTIMATE (CALCULATED) > 59 mL/min/; GLUCOSE 177 mg/dL (70-99); POTASSIUM 3.7 MEQ/L (3.7-5.4); SAMPLE HEMOLYSIS CHECK 0; SAMPLE ICTERIC CHECK 0; SAMPLE LIPEMIA CHECK 0; SODIUM 139 MEQ/L (136-147); UREA NITROGEN (BUN) 4 mg/dL (9-23)
[2016-08-05 07:46] LABS: MAGNESIUM 1.9 mg/dl (1.3-2.7)
[2016-08-05 11:05] VITALS: BP 129/64
[2016-08-05 15:50] VITALS: BP 111/59
[2016-08-05 19:59] VITALS: BP 109/59
[2016-08-06] VITALS (8 sets, daily range): BP systolic 102–116; BP diastolic 50–65
[2016-08-06 07:17] LABS: ANION GAP 7 MEQ/L (2-14); CHLORIDE 99 MEQ/L (99-109); GFR ESTIMATE (CALCULATED) > 59 mL/min/; GLUCOSE 165 mg/dL (70-99); MAGNESIUM 1.8 mg/dl (1.3-2.7); POTASSIUM 3.8 MEQ/L (3.7-5.4); SAMPLE HEMOLYSIS CHECK 0; SAMPLE ICTERIC CHECK 0; SAMPLE LIPEMIA CHECK 0; SODIUM 136 MEQ/L (136-147); UREA NITROGEN (BUN) 4 mg/dL (9-23)
[2016-08-06 07:33] LABS: HEMATOCRIT 27.6 % (36.0-46.0); MCH 29.5 PG (29.0-34.0); MCHC 33.3 G/DL (30.0-36.0); MCV 88.5 FL (83-99); RBC DIS.WIDTH-CV 13.8 % (11.8-14.6); RBC DIS.WIDTH-SD 44.3 % (39-53); RED BLOOD COUNT 3.12 M/uL (3.80-5.20); WHITE BLOOD COUNT 7.6 K/uL (4.1-10.2)
[2016-08-06 08:31] LABS: MEAN PLAT.VOLUME 10.1 uM^3 (9.5-12.4)
[2016-08-06 08:36] LABS: PLATELET COUNT 174 K/uL (156-360)
[2016-08-06 12:30] LABS: POINT-OF-CARE METER ID UU14162508
[2016-08-06 17:19] LABS: POINT-OF-CARE METER ID UU14162508
[2016-08-06 21:39] LABS: POINT-OF-CARE METER ID UU14162508
[2016-08-07 03:14] VITALS: BP 112/57
[2016-08-07 07:20] LABS: HEMATOCRIT 28.2 % (36.0-46.0); MCH 29.1 PG (29.0-34.0); MCHC 32.6 G/DL (30.0-36.0); MCV 89.2 FL (83-99); MEAN PLAT.VOLUME 9.7 uM^3 (9.5-12.4); PLATELET COUNT 295 K/uL (156-360); RBC DIS.WIDTH-CV 13.6 % (11.8-14.6); RBC DIS.WIDTH-SD 43.9 % (39-53); RED BLOOD COUNT 3.16 M/uL (3.80-5.20); WHITE BLOOD COUNT 6.9 K/uL (4.1-10.2)
[2016-08-07 08:04] LABS: CHLORIDE 100 mEq/L (99-109); POTASSIUM 3.7 mEq/L (3.7-5.4); SODIUM 137 mEq/L (136-147)
[2016-08-07 08:06] LABS: GLUCOSE 170 mg/dL (70-99)
[2016-08-07 08:07] VITALS: BP 135/63
[2016-08-07 08:07] LABS: ANION GAP 8 MEQ/L (2-14)
[2016-08-07 08:10] LABS: GFR ESTIMATE (CALCULATED) > 59 mL/min/
[2016-08-07 08:11] LABS: MAGNESIUM 1.6 mg/dL (1.3-2.7); UREA NITROGEN (BUN) 4 mg/dL (9-23)
[2016-08-07 11:17] VITALS: BP 120/65
[2016-08-07 12:13] LABS: POINT-OF-CARE METER ID UU14162508
[2016-08-07 16:00] VITALS: BP 137/60
[2016-08-07 20:15] VITALS: BP 125/58
[2016-08-08] VITALS (7 sets, daily range): BP systolic 113–125; BP diastolic 56–66
[2016-08-08 06:24] LABS: HEMATOCRIT 27.9 % (36.0-46.0); MCH 28.1 PG (29.0-34.0); MCHC 31.2 G/DL (30.0-36.0); MEAN PLAT.VOLUME 9.8 uM^3 (9.5-12.4); PLATELET COUNT 264 K/uL (156-360); RBC DIS.WIDTH-CV 13.8 % (11.8-14.6); RBC DIS.WIDTH-SD 44.4 % (39-53)
[2016-08-08 06:47] LABS: ANION GAP 6 MEQ/L (2-14); CHLORIDE 102 MEQ/L (99-109); GFR ESTIMATE (CALCULATED) > 59 mL/min/; GLUCOSE 140 mg/dL (70-99); MAGNESIUM 1.7 mg/dl (1.3-2.7); SAMPLE HEMOLYSIS CHECK 0; SAMPLE ICTERIC CHECK 0; SAMPLE LIPEMIA CHECK 0; SODIUM 138 MEQ/L (136-147); UREA NITROGEN (BUN) 5 mg/dL (9-23)
[2016-08-09 04:02] VITALS: BP 120/51
[2016-08-09 06:14] LABS: HEMATOCRIT 27.6 % (36.0-46.0); MCH 28.7 PG (29.0-34.0); MCHC 32.2 G/DL (30.0-36.0); MEAN PLAT.VOLUME 9.5 uM^3 (9.5-12.4); PLATELET COUNT 299 K/uL (156-360); RBC DIS.WIDTH-CV 13.6 % (11.8-14.6); RBC DIS.WIDTH-SD 44.7 % (39-53)
[2016-08-09 06:15] LABS: WHITE BLOOD COUNT 9.7 K/uL (4.1-10.2)
[2016-08-09 06:35] LABS: ANION GAP 8 MEQ/L (2-14); CHLORIDE 99 MEQ/L (99-109); GFR ESTIMATE (CALCULATED) > 59 mL/min/; GLUCOSE 162 mg/dL (70-99); POTASSIUM 4.1 MEQ/L (3.7-5.4); SAMPLE HEMOLYSIS CHECK 0; SAMPLE ICTERIC CHECK 0; SAMPLE LIPEMIA CHECK 0; SODIUM 137 MEQ/L (136-147); UREA NITROGEN (BUN) 7 mg/dL (9-23)
[2016-08-09 06:37] LABS: MAGNESIUM 1.6 mg/dl (1.3-2.7)
[2016-08-09 06:39] LABS: POINT-OF-CARE METER ID UU14162508
[2016-08-09 07:55] VITALS: BP 121/57
[2016-08-09 12:25] VITALS: BP 122/58
[2016-08-09 16:09] VITALS: BP 129/64
[2016-08-09 23:01] VITALS: BP 120/56
[2016-08-10 03:07] VITALS: BP 113/66
[2016-08-10 06:34] LABS: POINT-OF-CARE METER ID UU14162508
[2016-08-10 08:07] VITALS: BP 127/80
[2016-08-10 16:11] VITALS: BP 112/60
[2016-08-10 19:30] VITALS: BP 136/61
[2016-08-11 00:14] VITALS: BP 140/63
[2016-08-11 07:19] LABS: BASOPHIL COUNT 0.1 K/uL (0-0.1); EOSINOPHIL (%) 2.8 % (0-5); EOSINOPHIL COUNT 0.4 K/uL (0-0.3); HEMATOCRIT 31.3 % (36.0-46.0); IMMATURE GRANULOCYTE (%) 2.2 % (0.0-0.7); IMMATURE GRANULOCYTE COUNT 0.3 K/uL; INSTRUMENT ABS NEUTROPHIL CT 11.7 K/uL; LYMPHOCYTE COUNT 0.9 K/uL (1.0-2.8); MCH 28.6 PG (29.0-34.0); MCHC 31.9 G/DL (30.0-36.0); MCV 89.4 FL (83-99); MEAN PLAT.VOLUME 9.3 uM^3 (9.5-12.4); MONOCYTE (%) 6.9 % (3-12); NEUTROPHIL (%) 81.3 % (45-76); NEUTROPHIL COUNT 11.7 K/uL (1.8-6.4); PLATELET COUNT 315 K/uL (156-360); RBC DIS.WIDTH-CV 13.9 % (11.8-14.6); RBC DIS.WIDTH-SD 44.5 % (39-53)
[2016-08-11 07:20] LABS: WHITE BLOOD COUNT 14.4 K/uL (4.1-10.2)
[2016-08-11 07:21] VITALS: BP 140/59
[2016-08-11 07:25] LABS: ANION GAP 8 MEQ/L (2-14); CHLORIDE 99 MEQ/L (99-109); GFR ESTIMATE (CALCULATED) > 59 mL/min/; GLUCOSE 191 mg/dL (70-99); POTASSIUM 4.4 MEQ/L (3.7-5.4); SAMPLE HEMOLYSIS CHECK 0; SAMPLE ICTERIC CHECK 0; SAMPLE LIPEMIA CHECK 0; SODIUM 136 MEQ/L (136-147); UREA NITROGEN (BUN) 8 mg/dL (9-23)
[2016-08-11] MEDS ORDERED: HYDROCODON-ACE1 EAC7 PO (10:45)
[2016-08-11 11:24] LABS: POINT-OF-CARE METER ID UU14162508
[2016-08-11 11:58] VITALS: BP 114/54
== END 2016-08-11 15:41 | DRG 331 ==
LOC: 4WEST 08:08 → 2EAST 08:08 → 2SOUTH 08:08 → SDC 12:23 → EDSTATUS 12:29 → 2SOUTH 12:33 → SDC 16:39 → 4WEST 18:14 → SDC 07-31 11:18 → 4WEST 08-02 12:04 → 2EAST 08-03 14:51
PROVIDERS: Family Medicine Sports Medicine; Internal Medicine Pulmonary Disease; Physician Assistant; Surgery
DX: C20 Malignant neoplasm of rectum (principal); I27.2 Other secondary pulmonary hypertension; I95.9 Hypotension, unspecified; E11.65 Type 2 diabetes mellitus with hyperglycemia; J44.9 Chronic obstructive pulmonary disease, unspecified; I10 Essential (primary) hypertension; E78.5 Hyperlipidemia, unspecified; K21.9 Gastro-esophageal reflux disease without esophagitis; J45.909 Unspecified asthma, uncomplicated; Z88.5 Allergy status to narcotic agent; Z79.84 Long term (current) use of oral hypoglycemic drugs
CPT/HCPCS: 71010; 80048; 80048 91; 82378; 82948; 83036; 83735; 84100; 84484; 85025; 85027; 86850; 86900; 86901; 86920; 87641; 88305; 88307; 88309; 94640; 94640 76; 94760; 94799; 97530 GO; 97530 GP; 99202; J0131; J0330; J1100; J1170; J1335; J1650; J1815; J2405; J2550; J2710; J3010; J3475; J3480; J7050; J7120; P9016; P9045; P9047

== ENCOUNTER 2016-08-25 13:59 | Inpatient (IN) | payer OTHER ==
[~2016-08-25] VITALS: Ht 154.9 cm; Wt 58.0 kg
[~2016-08-25 13:59] MED LIST changes: +HYDROCODON-ACE1 EAC7 PO
[2016-08-25 16:02] VITALS: BP 161/65
[2016-08-25 19:08] VITALS: BP 138/63
[2016-08-25 23:21] VITALS: BP 132/63
[2016-08-25 23:36] LABS: POINT-OF-CARE METER ID UU14162508
[2016-08-26 03:11] VITALS: BP 114/57
[2016-08-26 06:22] LABS: POINT-OF-CARE METER ID UU14162508
[2016-08-26 06:44] LABS: HEMATOCRIT 31.1 % (36.0-46.0); MCHC 31.8 G/DL (30.0-36.0); MCV 87.9 FL (83-99); MEAN PLAT.VOLUME 8.9 uM^3 (9.5-12.4); PLATELET COUNT 269 K/uL (156-360); RBC DIS.WIDTH-CV 13.8 % (11.8-14.6); RBC DIS.WIDTH-SD 43.9 % (39-53); RED BLOOD COUNT 3.54 M/uL (3.80-5.20)
[2016-08-26 06:45] LABS: WHITE BLOOD COUNT 4.6 K/uL (4.1-10.2)
[2016-08-26 07:00] VITALS: BP 147/68
[2016-08-26 07:09] LABS: ALKALINE PHOSPHATASE 54 IU/L (3-129); ANION GAP 6 MEQ/L (2-14); CHLORIDE 101 MEQ/L (99-109); GFR ESTIMATE (CALCULATED) > 59 mL/min/; GLUCOSE 150 mg/dL (70-99); MAGNESIUM 1.9 mg/dl (1.3-2.7); POTASSIUM 4.4 MEQ/L (3.7-5.4); SAMPLE HEMOLYSIS CHECK 0; SAMPLE ICTERIC CHECK 0; SAMPLE LIPEMIA CHECK 0; SODIUM 138 MEQ/L (136-147); TOTAL BILIRUBIN 0.4 MG/DL (0.0-1.0); UREA NITROGEN (BUN) 8 mg/dL (9-23)
[2016-08-26 09:23] VITALS: BP 132/60
[2016-08-26 11:58] VITALS: BP 127/59
[2016-08-26 15:15] VITALS: BP 114/54
[2016-08-26 16:58] LABS: POINT-OF-CARE METER ID UU14162508
[2016-08-26 20:06] VITALS: BP 135/65
[2016-08-27] VITALS (7 sets, daily range): BP systolic 112–148; BP diastolic 53–67
[2016-08-27 07:06] LABS: HEMATOCRIT 30.7 % (36.0-46.0); MCH 27.8 PG (29.0-34.0); MCHC 31.6 G/DL (30.0-36.0); MEAN PLAT.VOLUME 9.4 uM^3 (9.5-12.4); PLATELET COUNT 255 K/uL (156-360); RBC DIS.WIDTH-CV 13.8 % (11.8-14.6); RBC DIS.WIDTH-SD 44.5 % (39-53); RED BLOOD COUNT 3.49 M/uL (3.80-5.20)
[2016-08-27 07:15] LABS: WHITE BLOOD COUNT 6.8 K/uL (4.1-10.2)
[2016-08-27 07:25] LABS: ANION GAP 6 MEQ/L (2-14); CHLORIDE 103 MEQ/L (99-109); GFR ESTIMATE (CALCULATED) > 59 mL/min/; GLUCOSE 172 mg/dL (70-99); POTASSIUM 4.3 MEQ/L (3.7-5.4); SAMPLE HEMOLYSIS CHECK 0; SAMPLE ICTERIC CHECK 0; SAMPLE LIPEMIA CHECK 0; SODIUM 138 MEQ/L (136-147); UREA NITROGEN (BUN) 13 mg/dL (9-23)
[2016-08-27] MEDS ORDERED: BREO ELLIPTA I1 EACH IH (11:03)
[2016-08-27] MEDS ORDERED: DULCOLAX10 MG PR (11:04)
[2016-08-27] MEDS ORDERED: NORCO 5/3251 TABLET PO (11:06)
[2016-08-27] MEDS ORDERED: LOVENOX40 MG/0.4 SC (11:06)
[2016-08-27] MEDS ORDERED: IPRATR-ALBUTEROL3 ML IH (11:11)
[2016-08-27] MEDS ORDERED: FUROSEMIDE20 MG PO (11:12)
[2016-08-27] MEDS ORDERED: MILK OF MAGN PO (11:16)
[2016-08-27] MEDS ORDERED: MIRALAX17 GM PO (11:16)
[2016-08-27] MEDS ORDERED: ZOFRAN4 MG PO (11:17)
[2016-08-28 07:04] LABS: POINT-OF-CARE METER ID UU14162508
[2016-08-28 07:10] LABS: MCH 28.3 PG (29.0-34.0); MCHC 31.4 G/DL (30.0-36.0); MCV 90.3 FL (83-99); MEAN PLAT.VOLUME 9.6 uM^3 (9.5-12.4); PLATELET COUNT 225 K/uL (156-360); RBC DIS.WIDTH-CV 13.9 % (11.8-14.6); RBC DIS.WIDTH-SD 46.1 % (39-53); RED BLOOD COUNT 3.21 M/uL (3.80-5.20); WHITE BLOOD COUNT 7.3 K/uL (4.1-10.2)
[2016-08-28 08:00] VITALS: BP 129/59
[2016-08-28 15:44] VITALS: BP 100/52
[2016-08-28 20:07] VITALS: BP 119/59
[2016-08-28 23:27] VITALS: BP 114/56
[2016-08-29 03:25] VITALS: BP 119/56
[2016-08-29 06:52] LABS: HEMATOCRIT 30.9 % (36.0-46.0); MCH 27.8 PG (29.0-34.0); MCHC 31.4 G/DL (30.0-36.0); MCV 88.5 FL (83-99); MEAN PLAT.VOLUME 9.4 uM^3 (9.5-12.4); PLATELET COUNT 235 K/uL (156-360); RBC DIS.WIDTH-CV 14.1 % (11.8-14.6); RBC DIS.WIDTH-SD 45.4 % (39-53); RED BLOOD COUNT 3.49 M/uL (3.80-5.20); WHITE BLOOD COUNT 5.5 K/uL (4.1-10.2)
[2016-08-29 07:26] VITALS: BP 121/58
[2016-08-29 15:47] VITALS: BP 127/62
[2016-08-29 23:20] VITALS: BP 114/58
[2016-08-30 06:46] LABS: POINT-OF-CARE METER ID UU14162508
[2016-08-30 07:17] VITALS: BP 129/64
[2016-08-30 07:34] LABS: HEMATOCRIT 29.5 % (36.0-46.0); MCH 27.8 PG (29.0-34.0); MCHC 31.5 G/DL (30.0-36.0); MCV 88.1 FL (83-99); MEAN PLAT.VOLUME 9.3 uM^3 (9.5-12.4); PLATELET COUNT 246 K/uL (156-360); RBC DIS.WIDTH-CV 13.9 % (11.8-14.6); RBC DIS.WIDTH-SD 44.7 % (39-53); RED BLOOD COUNT 3.35 M/uL (3.80-5.20); WHITE BLOOD COUNT 4.4 K/uL (4.1-10.2)
[2016-08-30 15:59] VITALS: BP 124/58
[2016-08-30 19:45] LABS: TROP-I INTERPRETATION NEGATIVE; TROPONIN-I < 0.01 ng/mL (0.0-0.30)
[2016-08-30 23:20] VITALS: BP 109/54
[2016-08-31 06:13] LABS: HEMATOCRIT 30.1 % (36.0-46.0); MCH 27.6 PG (29.0-34.0); MCHC 31.6 G/DL (30.0-36.0); MCV 87.5 FL (83-99); MEAN PLAT.VOLUME 9.4 uM^3 (9.5-12.4); PLATELET COUNT 249 K/uL (156-360); RBC DIS.WIDTH-SD 44.9 % (39-53); RED BLOOD COUNT 3.44 M/uL (3.80-5.20); WHITE BLOOD COUNT 4.5 K/uL (4.1-10.2)
[2016-08-31 07:00] VITALS: BP 153/89
[2016-08-31 11:20] VITALS: BP 166/74
[2016-08-31 16:00] VITALS: BP 141/65
[2016-08-31 23:17] VITALS: BP 123/56
[2016-09-01 07:23] LABS: HEMATOCRIT 30.8 % (36.0-46.0); MCH 28.1 PG (29.0-34.0); MCHC 32.1 G/DL (30.0-36.0); MCV 87.5 FL (83-99); MEAN PLAT.VOLUME 9.3 uM^3 (9.5-12.4); PLATELET COUNT 259 K/uL (156-360); RBC DIS.WIDTH-CV 14.3 % (11.8-14.6); RED BLOOD COUNT 3.52 M/uL (3.80-5.20)
[2016-09-01 07:47] VITALS: BP 133/62
[2016-09-01 11:41] LABS: POINT-OF-CARE METER ID UU14162508
[2016-09-01 16:00] VITALS: BP 138/65
[2016-09-01 16:24] LABS: POINT-OF-CARE METER ID UU14162508
[2016-09-01 23:35] VITALS: BP 150/67
[2016-09-02 07:10] LABS: MCH 27.7 PG (29.0-34.0); MCHC 31.3 G/DL (30.0-36.0); MCV 88.6 FL (83-99); MEAN PLAT.VOLUME 9.2 uM^3 (9.5-12.4); PLATELET COUNT 266 K/uL (156-360); RBC DIS.WIDTH-CV 14.2 % (11.8-14.6); RBC DIS.WIDTH-SD 45.8 % (39-53); RED BLOOD COUNT 3.61 M/uL (3.80-5.20); WHITE BLOOD COUNT 4.8 K/uL (4.1-10.2)
[2016-09-02 07:35] VITALS: BP 147/67
[2016-09-02 07:39] LABS: ANION GAP 11 MEQ/L (2-14); CHLORIDE 105 MEQ/L (99-109); GFR ESTIMATE (CALCULATED) > 59 mL/min/; GLUCOSE 147 mg/dL (70-99); POTASSIUM 3.5 MEQ/L (3.7-5.4); SAMPLE HEMOLYSIS CHECK 0; SAMPLE ICTERIC CHECK 0; SAMPLE LIPEMIA CHECK 0; SODIUM 141 MEQ/L (136-147); UREA NITROGEN (BUN) 6 mg/dL (9-23)
[2016-09-02 15:30] VITALS: BP 123/58
[2016-09-02 21:29] LABS: POINT-OF-CARE METER ID UU14162508
[2016-09-02 22:51] VITALS: BP 151/67
[2016-09-03 06:34] LABS: POINT-OF-CARE METER ID UU14162508
[2016-09-03 07:37] VITALS: BP 147/66
[2016-09-03 11:45] LABS: POINT-OF-CARE METER ID UU14162508
[2016-09-03 15:47] VITALS: BP 119/59
[2016-09-03 16:00] LABS: POINT-OF-CARE METER ID UU14162508
[2016-09-03 23:44] VITALS: BP 135/63
[2016-09-04 07:20] VITALS: BP 120/58
[2016-09-04 07:56] LABS: HEMATOCRIT 30.8 % (36.0-46.0); MCH 27.9 PG (29.0-34.0); MCHC 31.5 G/DL (30.0-36.0); MCV 88.5 FL (83-99); MEAN PLAT.VOLUME 9.5 uM^3 (9.5-12.4); PLATELET COUNT 263 K/uL (156-360); RBC DIS.WIDTH-CV 14.6 % (11.8-14.6); RBC DIS.WIDTH-SD 46.7 % (39-53); RED BLOOD COUNT 3.48 M/uL (3.80-5.20); WHITE BLOOD COUNT 5.9 K/uL (4.1-10.2)
[2016-09-04 08:10] LABS: ANION GAP 8 MEQ/L (2-14); CHLORIDE 102 MEQ/L (99-109); GFR ESTIMATE (CALCULATED) > 59 mL/min/; GLUCOSE 161 mg/dL (70-99); POTASSIUM 3.9 MEQ/L (3.7-5.4); SAMPLE HEMOLYSIS CHECK 0; SAMPLE ICTERIC CHECK 0; SAMPLE LIPEMIA CHECK 0; SODIUM 138 MEQ/L (136-147); UREA NITROGEN (BUN) 9 mg/dL (9-23)
[2016-09-04] MEDS ORDERED: HYDROCODON-ACE1 EAC7 PO (10:25)
[2016-09-04] MEDS ORDERED: POLYETHYLENE GL17 GM PO (10:25)
[2016-09-04 11:32] LABS: POINT-OF-CARE METER ID UU14162508
== END 2016-09-04 12:54 | disposition home or self-care (01) | DRG 863 ==
LOC: 2EAST 13:59 → 2EASTP 14:19 → 2EAST 14:19 → 2EASTP 08-26 09:02 → 2EAST 08-28 11:57
PROVIDERS: Physician Assistant; Surgery
PROC: 0J973ZX Drainage of Back Subcutaneous Tissue and Fascia, Percutaneous Approach, Diagnostic (ICD-10-PCS; principal; 2016-08-26)
DX: T81.4XXA Infection following a procedure, initial encounter (principal); I10 Essential (primary) hypertension; E11.9 Type 2 diabetes mellitus without complications; K76.0 Fatty (change of) liver, not elsewhere classified; E78.5 Hyperlipidemia, unspecified
CPT/HCPCS: 36415; 74000; 74177; 75989; 80048; 80053; 81003; 82948; 83036; 83735; 84100; 84484; 85025; 85027; 87070; 87075; 87076; 87086; 87185; 87205; 93005; 94640; 94640 76; 99202; C1729; C1769; J1644; J1815; J1885; J2405; J2543; J3010; J7030; J7050

== ENCOUNTER 2016-09-19 22:01 | Emergency (ER) | payer OTHER ==
[~2016-09-19] VITALS: Ht 152.4 cm; Wt 65.6 kg
[~2016-09-19 22:01] MED LIST changes: +BREO ELLIPTA I1 EACH IH; +DULCOLAX10 MG PR; +FUROSEMIDE20 MG PO; +IPRATR-ALBUTEROL3 ML IH; +LOVENOX40 MG/0.4 SC; +MILK OF MAGN PO; +NORCO 5/3251 TABLET PO; +POLYETHYLENE GL17 GM PO; +ZOFRAN4 MG PO
[2016-09-19 22:56] LABS: HEMATOCRIT 33.9 % (36.0-46.0); MCH 27.7 PG (29.0-34.0); MCHC 32.2 G/DL (30.0-36.0); MEAN PLAT.VOLUME 9.2 uM^3 (9.5-12.4); PLATELET COUNT 244 K/uL (156-360); RED BLOOD COUNT 3.94 M/uL (3.80-5.20); WHITE BLOOD COUNT 7.7 K/uL (4.1-10.2)
[2016-09-19 23:07] LABS: CHLORIDE 98 mEq/L (99-109); POTASSIUM 4.4 mEq/L (3.7-5.4); SODIUM 136 mEq/L (136-147)
[2016-09-19 23:09] LABS: GLUCOSE 203 mg/dL (70-99)
[2016-09-19 23:10] LABS: ANION GAP 8 MEQ/L (2-14)
[2016-09-19 23:13] LABS: GFR ESTIMATE (CALCULATED) > 59 mL/min/
[2016-09-19 23:14] LABS: UREA NITROGEN (BUN) 6 mg/dL (9-23)
[2016-09-20] MEDS ORDERED: CLEOCIN300 MG PO (00:50)
[2016-09-20 02:40] VITALS: BP 124/48
== END 2016-09-20 02:41 | disposition home or self-care (01) ==
LOC: EME → EDBD 22:01 → EME 22:01
PROVIDERS: Emergency Medicine
DX: L02.211 Cutaneous abscess of abdominal wall (principal); Z90.49 Acquired absence of other specified parts of digestive tract; Z93.3 Colostomy status; Z85.048 Personal history of other malignant neoplasm of rectum, rectosigmoid junction, and anus; K44.9 Diaphragmatic hernia without obstruction or gangrene; Z90.710 Acquired absence of both cervix and uterus; Z87.442 Personal history of urinary calculi; J44.9 Chronic obstructive pulmonary disease, unspecified; J45.909 Unspecified asthma, uncomplicated; I10 Essential (primary) hypertension; E11.9 Type 2 diabetes mellitus without complications; Z79.84 Long term (current) use of oral hypoglycemic drugs
CPT/HCPCS: 74177; 80048; 83605; 85027; 87040; 99281; 99285; J1885; J7030

== ENCOUNTER → 2016-09-29 | Outpatient (CLI) | payer OTHER ==
[~2016-09-29] MED LIST changes: +CLEOCIN300 MG PO
== END | disposition home or self-care (01) ==
LOC: RAD 07:47
DX: R93.41 Abnormal radiologic findings on diagnostic imaging of renal pelvis, ureter, or bladder (principal); Z98.890 Other specified postprocedural states
CPT/HCPCS: 74177

== ENCOUNTER → 2016-10-19 | Outpatient (CLI) | payer OTHER | END | disposition home or self-care (01) | LOC: RAD 12:42 | DX: Z98.890 Other specified postprocedural states (principal); Z90.710 Acquired absence of both cervix and uterus | CPT/HCPCS: 74177 ==

== ENCOUNTER 2017-05-12 14:36 | Emergency (ER) | payer OTHER ==
[~2017-05-12] VITALS: Ht 152.4 cm; Wt 69.8 kg
[2017-05-12 15:11] LABS: BASOPHIL (%) 0.5 % (0-1); EOSINOPHIL (%) 2.6 % (0-5); EOSINOPHIL COUNT 0.2 K/uL (0-0.3); HEMATOCRIT 41.5 % (36.0-46.0); HEMOGLOBIN 14.6 G/DL (11.9-15.5); IMMATURE GRANULOCYTE (%) 0.5 % (0.0-0.7); LYMPHOCYTE (%) 22.7 % (15-42); LYMPHOCYTE COUNT 1.5 K/uL (1.0-2.8); MCH 29.4 PG (29.0-34.0); MCHC 35.2 G/DL (30.0-36.0); MCV 83.7 FL (83-99); MONOCYTE COUNT 0.5 K/uL (0-0.8); NEUTROPHIL (%) 65.7 % (45-76); NEUTROPHIL COUNT 4.4 K/uL (1.8-6.4); PLATELET COUNT 218 K/uL (156-360); RBC DIS.WIDTH-CV 13.1 % (11.8-14.6); RBC DIS.WIDTH-SD 39.8 % (39-53); RED BLOOD COUNT 4.96 M/uL (3.80-5.20); WHITE BLOOD COUNT 6.6 K/uL (4.1-10.2)
[2017-05-12 15:20] LABS: CHLORIDE 101 mEq/L (99-109); POTASSIUM 4.2 mEq/L (3.7-5.4); SODIUM 135 mEq/L (136-147)
[2017-05-12 15:22] LABS: TOTAL PROTEIN 6.8 g/dL (6.4-8.3)
[2017-05-12 15:24] LABS: TOTAL BILIRUBIN 0.4 mg/dL (0.0-1.0)
[2017-05-12 15:26] LABS: ALKALINE PHOSPHATASE 103 IU/L (3-129); CREATININE 0.9 mg/dL (0.6-1.3); GFR ESTIMATE (CALCULATED) > 59 mL/min/
[2017-05-12 15:27] LABS: UREA NITROGEN (BUN) 11 mg/dL (9-23)
[2017-05-12 15:28] LABS: AST (GOT) 16 IU/L (2-34)
[2017-05-12 15:29] LABS: ALT (GPT) 17 IU/L (3-49); GLUCOSE 466 mg/dL (70-99); LIPASE 37 U/L (1.0-51.0)
[2017-05-12 16:48] LABS: APPEARANCE CLEAR ((CLEAR)); BILIRUBIN NEGATIVE; BLOOD NEGATIVE; COLOR STRAW ((YELLOW)); GLUCOSE (STRIP) >=500; KETONES NEGATIVE; LEUKOCYTES NEGATIVE; NITRITE NEGATIVE; PROTEIN (STRIP) NEGATIVE; SPECIFIC GRAVITY 1.023 (1.000-1.030); UCUL ADDED? NO; UROBILINOGEN 0.2 MG/DL (0.2-1.0)
[2017-05-12] MEDS ORDERED: KENALOG,ARISTOC15 G1 TP (18:33)
[2017-05-12 18:55] VITALS: BP 164/80
== END 2017-05-12 18:56 | disposition home or self-care (01) ==
LOC: EME 14:36
PROVIDERS: Emergency Medicine
DX: R10.32 Left lower quadrant pain (principal); Z93.3 Colostomy status; E11.65 Type 2 diabetes mellitus with hyperglycemia; K59.00 Constipation, unspecified; Z90.49 Acquired absence of other specified parts of digestive tract; Z85.048 Personal history of other malignant neoplasm of rectum, rectosigmoid junction, and anus; Z92.21 Personal history of antineoplastic chemotherapy; I70.0 Atherosclerosis of aorta; I10 Essential (primary) hypertension; J44.9 Chronic obstructive pulmonary disease, unspecified; Z87.442 Personal history of urinary calculi; Z79.84 Long term (current) use of oral hypoglycemic drugs
CPT/HCPCS: 74177; 80053; 81003; 82948; 83690; 85025; J7030